=== PATIENT | female | born 1955 | race Caucasian/White ===

== ENCOUNTER → 2018-01-11 08:50 | Outpatient (CLI) | payer OTHER, SELFPAY ==
[2018-01-11 10:00] LABS: BUN Creatinine Ratio 26.3 (6-22); Cholesterol 233 mg/dL (140-199); Estimated Glomerular Filt Rate > 60.0 mL/min (>60); Glucose 95 mg/dL (80-110); HDL Cholesterol 70 mg/dL (40-60); HEMOLYSIS < 15 (0-50); LDL Cholesterol Calculated 128 mg/dL (<100); Potassium 4.3 mmol/L (3.4-5.1); Sodium 138 mmol/L (137-145); Triglycerides 176 mg/dL (35-150)
[2018-01-11 10:23] LABS: TSH w/ Reflex to FT4 1.48 uIU/mL (0.47-4.68)
== END ==
PROVIDERS: PCP Internal Medicine; Visit Provider Internal Medicine
DX: E03.9 Hypothyroidism, unspecified (principal); Z13.220 Encounter for screening for lipoid disorders
CPT/HCPCS: 36415; 80048; 80061; 84443

== ENCOUNTER 2018-04-14 11:43 | Outpatient (RCR) | payer OTHER, SELFPAY ==
--- NOTE | 2018-04-14 12:00 | PT.OPPOC ---
Current Diagnoses Benign paroxysmal vertigo, unspecified ear (04/14/18) Provider Visit Care Team Role Provider Type Zully Streeter MD Attending Provider Physician Family Provider Primary Care Provider Specialty: Internal Medicine Address: [address] [place] [address], [id number] Email: Plan Of Care PT-OP-T Assessment and Plan Start: 04/15/18 08:32 Freq: Status: Active Protocol: Document 04/14/18 12:00 DCW (Rec: 04/15/18 08:59 DCW [id number]) Physical Therapy Assessment Rehab Potential Rehabilitation Potential Good Evaluation Complexity Number of Personal Factors/Comorbidities 1-2 Number of Body Systems Impaired 1-2 Clinical Presentation at Evaluation Unstable Impairments Impairments Vestibular Goals Two Impairment DHI Short Term Goal (STG) Pt to score at most 10% on DHI STG Duration 05/12/18 One Impairment Vertigenous symptoms Short Term Goal (STG) Pt to report no symptoms of dizziness/vertigo over the course of two weeks STG Duration 05/12/18 Assessment Summary Assessment Pt presents with an entirely negative vestibular examination. Going by her subjective history and symptoms, pt may be suffering from BPPV, which would explain the short duration of symptoms, the waxing and waning nature of her episodes, and her discription of her symptoms. However, BPPV does not typically occur once a week, and pt cannot remember if there is any associated head movement or position changes when her symptoms occur. Another possibility would be migraine variant dizziness, judging by her history of migraine, however it would be highly unusual of vertigo caused by migraine only lasting for one minute or less. Cervicogenic dizziness could also be a possibility, with her history of cervical fracture, but again, the occurance of her symptoms do not fit well. It was recommended to the patient to keep track of her symptoms, and return in the next two weeks for a follow up and for more testing to be performed. Physical Therapy Plan Frequency and Duration Frequency of Treatment 1x/Week Duration of Treatment 2 months Plan of Care Start Date 04/14/18 Plan of Care End Date 06/14/18 Therapeutic Interventions Therapeutic Interventions Canalithic Repositioning Manual Therapy Neuromuscular Re-education Patient/Caregiver Education Therapeutic Exercises Vestibular Rehabilitation Next Visit Focus/Plan Next Note Type Treatment Note Next Visit Plan Further vestibular testing Plan of Care Dates Plan of Care Start Date 04/14/18 Plan of Care End Date 06/14/18 Please Sign and Return: I have reviewed this Plan of Care and certify that the skilled therapy services above are required to meet the patient?s needs. Physician Signature Date Printed Name and Credentials Clinical Instructor Signature Printed Name and Credentials
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
== END 2018-08-18 10:36 ==
LOC: PHYS 11:43
PROVIDERS: Family Provider Internal Medicine; PCP Internal Medicine; Visit Provider Internal Medicine
DX: H81.10 Benign paroxysmal vertigo, unspecified ear (principal)
CPT/HCPCS: 97161

== ENCOUNTER → 2018-06-28 09:47 | Outpatient (CLI) | payer OTHER, SELFPAY ==
--- NOTE | 2018-06-28 | DI.MG.S_ITS ---
BILATERAL DIGITAL SCREENING MAMMOGRAM 3D/2D WITH CAD: 06/28/2018 CLINICAL: Routine screening. Comparison is made to exams dated: 06/01/2017 mammogram, 05/28/2016 mammogram, and 05/22/2016 mammogram - [facility]. There are scattered fibroglandular elements in both breasts. Current study was also evaluated with a Computer Aided Detection (CAD) system. There are stable diffuse punctate calcifications in both breasts. No significant masses, calcifications, or other findings are seen in either breast. There has been no significant interval change. IMPRESSION: There is no mammographic evidence of malignancy. A 1 year screening mammogram is recommended. This exam was interpreted at Station ID: [id number]. NOTE: For mammograms, a report in lay terms will be sent to the patient. Approximately 15% of breast malignancies will not be visualized mammographically. In the management of a palpable breast mass, a negative mammogram must not discourage biopsy of a clinically suspicious lesion. Electronically Signed By: Justen Leija M.D. ecl/:06/29/2018 07:33:14 letter sent: Normal Exam ACR BI-RADS Category 2: Benign Finding(s) 3342F
== END ==
PROVIDERS: PCP Internal Medicine; Visit Provider Internal Medicine
DX: Z12.31 Encounter for screening mammogram for malignant neoplasm of breast (principal)
CPT/HCPCS: 77063; 77067

== ENCOUNTER → 2018-11-11 08:02 | Outpatient (CLI) | payer MEDICARE, OTHER, SELFPAY ==
--- NOTE | 2018-11-11 | DI.US.S_ITS ---
PROCEDURE: US ABD AORTA ANEURYSM SCREEN INDICATIONS: SCREENING Encounter for screening for osteoporosis TECHNIQUE: Real time scanning was performed of the aorta and iliac arteries, with image documentation. COMPARISON: None. FINDINGS: Aorta: Proximal aortic diameter measures 2.4 cm. Mid-aorta measures 2.0 cm. Distal aortic diameter is 1.7 cm. Iliac arteries: Right common iliac artery measures 1.1 cm. Left common iliac artery measures 1.0 cm. IMPRESSION: No evidence of aortic aneurysm identified. Dictated by: Flako Jack M.D. on 11/11/2018 at 9:17 Approved by: Flako Jack M.D. on 11/11/2018 at 9:18
[2018-11-11 09:06] LABS: BUN Creatinine Ratio 26.3 (6-22); Blood Urea Nitrogen 21 mg/dL (7-17); Calcium 9.2 mg/dL (8.4-10.2); Carbon Dioxide 25 mmol/L (22-32); Chloride 105 mmol/L (98-107); Cholesterol 218 mg/dL (140-199); Estimated Glomerular Filt Rate > 60.0 mL/min (>60); Glucose 96 mg/dL (80-110); HDL Cholesterol 55 mg/dL (40-60); HEMOLYSIS < 15 (0-50); LDL Cholesterol Calculated 134 mg/dL (<100); Potassium 4.1 mmol/L (3.4-5.1); Sodium 140 mmol/L (137-145); Triglycerides 146 mg/dL (35-150)
[2018-11-11 10:45] LABS: TSH w/ Reflex to FT4 2.14 uIU/mL (0.47-4.68)
[2018-11-11 11:17] LABS: Hep C Virus Ab w/Reflex Quant NEGATIVE s/c (NEGATIVE)
== END ==
PROVIDERS: PCP Internal Medicine; Visit Provider Internal Medicine
DX: Z13.820 Encounter for screening for osteoporosis (principal); Z13.6 Encounter for screening for cardiovascular disorders; Z13.1 Encounter for screening for diabetes mellitus; Z13.818 Encounter for screening for other digestive system disorders; E78.5 Hyperlipidemia, unspecified; E03.9 Hypothyroidism, unspecified; Z78.0 Asymptomatic menopausal state; Z90.722 Acquired absence of ovaries, bilateral; Z87.891 Personal history of nicotine dependence
CPT/HCPCS: 36415; 76706; 77080; 80048; 80061; 84443; 86803

== ENCOUNTER → 2019-04-19 09:11 | Outpatient (CLI) | payer MEDICARE, OTHER, SELFPAY ==
--- NOTE | 2019-04-19 | DI.CT.S_ITS ---
PROCEDURE: CT SINUS SCREEN WO CON INDICATIONS: Acute recurrent pansinusitis TECHNIQUE: Noncontrast 3.0 mm axial images acquired from the frontal sinuses to the mid-sella, with coronal and sagittal reformats. For radiation dose reduction, the following was used: automated exposure control, adjustment of mA and/or kV according to patient size. COMPARISON: None. FINDINGS: Image quality: Excellent. Moderate-sized mucous retention cyst versus polyp noted in the left maxillary and right sphenoid sinuses. Small mucous retention cyst noted in the right maxillary sinus. The estimated units are patent. No air-fluid levels. Nasal septum is midline. No monique bullosa or paradoxical turbinates. No osseous thickening, osseous remodeling or osseous erosive changes. IMPRESSION: 1. Moderate-sized right sphenoid sinus and left maxillary sinus mucous retention cyst versus polyps. 2. No air-fluid levels. Dictated by: Shelby Hunt MD, PhD on 04/19/2019 at 10:15 Approved by: Shelby Hunt MD, PhD on 04/19/2019 at 10:17
== END ==
PROVIDERS: PCP Internal Medicine; Visit Provider Internal Medicine
DX: J01.41 Acute recurrent pansinusitis (principal)
CPT/HCPCS: 70486

== ENCOUNTER → 2019-05-24 19:21 | Outpatient (ROUT) | payer MEDICARE, OTHER, SELFPAY ==
[2019-05-24 19:38] LABS: Add Manual Diff / Slide Review NO; Basophils Absolute Auto 100 /uL (0-100); Basophils Percent Auto 1.4 % (0-2); Eosinophils Absolute Auto 100 /uL (0-450); Eosinophils Percent Auto 1.2 % (2-4); Hematocrit 42.4 % (36-46); Hemoglobin 14.3 g/dL (12.0-16.0); Lymphocytes Absolute Auto 2800 /uL (1100-4500); Lymphocytes Percent Auto 35.4 % (25-40); Mean Corpuscular HGB Conc 33.8 % (30-36); Mean Corpuscular Hemoglobin 29.8 PG (26-34); Mean Corpuscular Volume 88.2 fL (80-100); Monocytes Absolute Auto 500 /uL (0-900); Monocytes Percent Auto 6.7 % (3-14); Neutrophils Absolute Auto 4400 /uL (1500-7000); Neutrophils Percent Auto 55.3 % (50-75); Platelet Count 189 X10^3/uL (150-400); Red Blood Cell Count 4.81 X10^6/uL (4.0-5.2); Red Cell Distribution Width 14.2 % (11.6-14.8)
[2019-05-24 19:49] LABS: Alanine Aminotransferase 21 IU/L (9-52); Aspartate Aminotransferase 29 IU/L (14-36); Blood Urea Nitrogen 20 mg/dL (7-17); C-Reactive Protein Quant 0.9 mg/dL (<1.0); Calcium 9.6 mg/dL (8.4-10.2); Carbon Dioxide 23 mmol/L (22-32); Chloride 106 mmol/L (98-107); Creatine Kinase 90 U/L (30-135); Estimated Glomerular Filt Rate > 60.0 mL/min (>60); Glucose 98 mg/dL (80-110); HEMOLYSIS 28 (0-50); Potassium 4.6 mmol/L (3.4-5.1); Sodium 140 mmol/L (137-145)
[2019-05-24 20:13] LABS: Erythrocyte Sedimentation Rate 5 MM/HR (0-20)
[2019-05-24 20:18] LABS: TSH w/ Reflex to FT4 1.89 uIU/mL (0.47-4.68)
== END ==
PROVIDERS: PCP Internal Medicine; Visit Provider Internal Medicine
DX: M79.10 Myalgia, unspecified site (principal); E03.9 Hypothyroidism, unspecified
CPT/HCPCS: 80048; 82550; 84443; 84450; 84460; 85025; 85651; 86140

== ENCOUNTER → 2019-06-27 12:24 | Outpatient (CLI) | payer MEDICARE, OTHER, SELFPAY ==
[2019-06-27 13:23] LABS: Erythrocyte Sedimentation Rate 3 MM/HR (0-20)
== END ==
PROVIDERS: PCP Internal Medicine; Visit Provider Family Medicine
DX: G43.909 Migraine, unspecified, not intractable, without status migrainosus (principal)
CPT/HCPCS: 36415; 85651

== ENCOUNTER → 2019-07-05 17:41 | Outpatient (CLI) | payer MEDICARE, OTHER, SELFPAY ==
--- NOTE | 2019-07-05 17:45 | DI.MRI.S_ITS ---
PROCEDURE: MR HEAD/BRAIN WO CON INDICATIONS: migraine headaches + new atypical facial pain TECHNIQUE: Non-contrast axial T1 spin echo, axial T2 fast spin echo, sagittal and axial FLAIR, coronal T2 fast spin echo, axial gradient echo, axial diffusion and ADC through the brain. COMPARISON: None. FINDINGS: Image quality: Excellent. CSF spaces: Ventricles appear symmetric in size and shape. Basal cisterns are patent. No extra-axial fluid collections. Brain: No intracranial bleeds or mass effects. There is no cerebral volume loss for age. There are minimal periventricular and deep white matter chronic small vessel ischemic changes. Brainstem appears normal. Diffusion-weighted images show no acute ischemic insults. No chronic ischemic insults. Normal intravascular flow voids are present. Skull and face: Calvarial bone marrow is normal in signal. Orbits are normal. Sinuses: Moderate-sized left maxillary sinus mucous retention cyst versus polyp. mastoids are clear. IMPRESSION: 1. No acute intracranial disease process. 2. No abnormal intracranial mass 3. Mild, diffuse cerebral volume loss. 4. Minimal periventricular and subcortical white matter chronic microvascular ischemic changes. Dictated by: Shelby Hunt MD, PhD on 07/06/2019 at 9:12 Approved by: Shelby Hunt MD, PhD on 07/06/2019 at 10:48
== END ==
PROVIDERS: Family Provider Internal Medicine; PCP Internal Medicine; Visit Provider Family Medicine
DX: G43.909 Migraine, unspecified, not intractable, without status migrainosus (principal); G50.1 Atypical facial pain
CPT/HCPCS: 70551

== ENCOUNTER → 2019-08-12 08:56 | Outpatient (CLI) | payer MEDICARE, OTHER, SELFPAY ==
--- NOTE | 2019-08-12 | DI.MG.S_ITS ---
BILATERAL DIGITAL SCREENING MAMMOGRAM 3D/2D WITH CAD: 08/12/2019 CLINICAL: Routine screening. Comparison is made to exams dated: 06/28/2018 mammogram, 06/01/2017 mammogram, and 05/22/2016 mammogram - [facility]. The tissue of both breasts is heterogeneously dense. This may lower the sensitivity of mammography. Current study was also evaluated with a Computer Aided Detection (CAD) system. There are benign calcifications in both breasts. No significant masses, calcifications, or other findings are seen in either breast. There has been no significant interval change. IMPRESSION: There is no mammographic evidence of malignancy. A 1 year screening mammogram is recommended. This exam was interpreted at Station ID: [id number]. NOTE: For mammograms, a report in lay terms will be sent to the patient. Approximately 15% of breast malignancies will not be visualized mammographically. In the management of a palpable breast mass, a negative mammogram must not discourage biopsy of a clinically suspicious lesion. Electronically Signed By: John gardner/abi:08/14/2019 10:42:11 letter sent: Normal Exam ACR BI-RADS Category 2: Benign Finding(s) 3342F
== END ==
PROVIDERS: PCP Internal Medicine; Visit Provider Internal Medicine
DX: Z12.31 Encounter for screening mammogram for malignant neoplasm of breast (principal)
CPT/HCPCS: 77063; 77067

== ENCOUNTER → 2020-02-13 17:43 | Outpatient (ROUT) | payer MEDICARE, OTHER, SELFPAY ==
[2020-02-16 19:57] LABS: COVID19 Sendout Not Detected (Not Detected)
== END ==
PROVIDERS: PCP Internal Medicine; Visit Provider Physician Assistant
DX: R05 Cough (principal); R06.02 Shortness of breath
CPT/HCPCS: 87635

== ENCOUNTER → 2020-07-15 09:41 | Outpatient (CLI) | payer MEDICARE, OTHER, SELFPAY ==
[2020-07-15 11:33] LABS: Alanine Aminotransferase 15 IU/L (<35); Albumin 3.9 g/dL (3.5-5.0); Albumin Globulin Ratio 1.4 (1.0-2.8); Alkaline Phosphatase 42 U/L (38-126); Aspartate Aminotransferase 19 IU/L (14-36); Bilirubin Total 0.6 mg/dL (0.2-1.3); Blood Urea Nitrogen 18 mg/dL (7-17); Calcium 9.3 mg/dL (8.4-10.2); Carbon Dioxide 30 mmol/L (22-32); Chloride 97 mmol/L (98-107); Cholesterol 212 mg/dL (140-199); Estimated Glomerular Filt Rate > 60.0 mL/min (>60); Globulin 2.7 g/dL (1.7-4.1); Glucose 84 mg/dL (80-110); HDL Cholesterol 69 mg/dL (40-60); HEMOLYSIS < 15 (0-50); LDL Cholesterol Calculated 111 mg/dL (<100); Potassium 4.4 mmol/L (3.4-5.1); Sodium 134 mmol/L (137-145); Total Protein 6.6 g/dL (6.3-8.2); Triglycerides 160 mg/dL (35-150)
[2020-07-15 12:02] LABS: TSH w/ Reflex to FT4 1.69 uIU/mL (0.47-4.68)
== END ==
PROVIDERS: PCP Internal Medicine; Referring Provider Internal Medicine; Visit Provider Internal Medicine
DX: E03.9 Hypothyroidism, unspecified (principal)
CPT/HCPCS: 36415; 80053; 80061; 84443

== ENCOUNTER → 2020-07-31 13:53 | Outpatient (CLI) | payer MEDICARE, OTHER, SELFPAY ==
[2020-07-31 15:17] LABS: COVID19 -Nasal RAPID Negative (Negative)
== END ==
PROVIDERS: PCP Internal Medicine; Visit Provider Physician Assistant
DX: Z11.59 Encounter for screening for other viral diseases (principal)
CPT/HCPCS: 87635

== ENCOUNTER → 2020-08-13 12:08 | Outpatient (CLI) | payer MEDICARE, OTHER, SELFPAY ==
--- NOTE | 2020-08-13 | DI.MG.S_ITS ---
BILATERAL DIGITAL SCREENING MAMMOGRAM 3D/2D WITH CAD: 08/13/2020 CLINICAL: Routine screening. Comparison is made to exams dated: 08/12/2019 mammogram, 06/28/2018 mammogram, and 06/01/2017 mammogram - [facility]. The tissue of both breasts is heterogeneously dense. This may lower the sensitivity of mammography. Current study was also evaluated with a Computer Aided Detection (CAD) system. There are benign calcifications in both breasts. There is a mole marker on the right breast. No significant masses, calcifications, or other findings are seen in either breast. There has been no significant interval change. IMPRESSION: BENIGN There is no mammographic evidence of malignancy. A 1 year screening mammogram is recommended. This exam was interpreted at Station ID: [id number]. NOTE: For mammograms, a report in lay terms will be sent to the patient. Approximately 15% of breast malignancies will not be visualized mammographically. In the management of a palpable breast mass, a negative mammogram must not discourage biopsy of a clinically suspicious lesion. Electronically Signed By: Shyam Rudd acr/abi:08/13/2020 13:05:03 letter sent: Normal Exam ACR BI-RADS Category 2: Benign Finding(s) 3342F
== END ==
PROVIDERS: PCP Internal Medicine; Referring Provider Internal Medicine; Visit Provider Internal Medicine
DX: Z12.31 Encounter for screening mammogram for malignant neoplasm of breast (principal)
CPT/HCPCS: 77063; 77067

== ENCOUNTER → 2020-09-03 15:42 | Outpatient (CLI) | payer MEDICARE, OTHER, SELFPAY ==
--- NOTE | 2020-09-03 15:46 | DI.MRI.S_ITS ---
PROCEDURE: MR LUMBAR SPINE WO CON INDICATIONS: Radiculopathy, lumbar region TECHNIQUE: Noncontrast sagittal T1 spin echo and T2 fast echo, sagittal STIR, axial T1 and T2 fast spin echo through the lumbar spine. Axial and oblique coronal T1 spin echo and STIR through the sacrum. In cases with scoliosis, additional coronal T2 fast spin echo may be performed. Additional oblique coronal images were obtained of the sacrum with T1 weighted and STIR images. COMPARISON: [facility], MR, L-SPINE WITHOUT CONTRAST, 12/23/2015, 18:44. [facility], CR, XR LUMBAR SPINE 2 OR 3 VIEWS, 06/09/2019, 8:50. [facility], MR, MR LUMBAR SPINE WITHOUT CONTRAST, 09/09/2017, 9:35. FINDINGS: Image quality: Excellent. Alignment and Curvature: There is normal bony alignment. Bone Marrow: Marrow is of normal overall signal. No acute vertebral body compression fractures. No sacral fractures. Spinal Cord: Conus medullaris terminates at the L1 level. Visualized cord demonstrates normal signal and size. Paraspinous Soft Tissues: No paravertebral masses. T11-T12: Moderate loss of disc height is seen. Reactive marrow endplate changes are seen, which are hyperintense on T1-weighted and T2-weighted imaging and most consistent with fatty metaplasia (Modic type II changes). Mild generalized disc bulge is seen. Bridging endplate osteophytes are seen. No significant neural foraminal or central canal narrowing can be seen. T12-L1: Oyri-ba-phohtprm loss of disc height and disc signal can be seen. Mild generalized disc bulge is seen. There is mild right-sided and no left-sided neural foraminal narrowing seen. The central canal is widely patent. L1-L2: The disc height is well-preserved. Loss of disc signal is seen at this level. No significant neural foraminal or central canal narrowing can be seen. L2-L3: The disc height is well-preserved. Loss of disc signal is seen at this level. No significant neural foraminal or central canal narrowing can be seen. L3-L4: The disc height is well-preserved. Loss of disc signal is seen at this level. No significant neural foraminal or central canal narrowing can be seen. L4-L5: The disc height is well-preserved. Loss of disc signal is seen at this level. Mild generalized disc bulge is seen. Mild to moderate facet hypertrophy is seen. Fluid is seen within the facet joints themselves. No significant neural foraminal or central canal narrowing can be seen. L5-S1: The disc height is well-preserved. Loss of disc signal is seen at this level. At least moderate facet hypertrophy can be seen. No significant neural foraminal or central canal narrowing can be seen. Sacrum: Sacral neural foramina appear normal throughout. Superior to the piriformis muscles, the pre-plexal structures appear normal, including the lumbosacral trunk and S1 root. Just anterior to the piriformis muscles, the sacral plexus proper demonstrates normal morphology (lumbosacral trunk, S1 to S3 nerve roots). Inferior to the piriformis muscles, the sciatic nerves appear normal. IMPRESSION: Degenerative changes are seen, which are similar to the prior. No significant sacral abnormality is detected. Dictated by: Maverick Lennon M.D. on 09/03/2020 at 17:17 Approved by: Maverick Lennon M.D. on 09/03/2020 at 17:21
== END ==
PROVIDERS: PCP Internal Medicine; Referring Provider Physical Medicine & Rehabilitation; Visit Provider Physical Medicine & Rehabilitation
DX: M47.26 Other spondylosis with radiculopathy, lumbar region (principal)
CPT/HCPCS: 72148

== ENCOUNTER → 2020-09-04 12:09 | Outpatient (CLI) | payer MEDICARE, OTHER, SELFPAY ==
--- NOTE | 2020-09-04 | DI.RAD.S_ITS ---
PROCEDURE: XR CERVICAL SPINE 4V OR 5V INDICATIONS: NECK PAIN TECHNIQUE: 6 views of the cervical spine were acquired. COMPARISON: None. FINDINGS: Bones: No fractures or dislocations to the T1 level. No suspicious bony lesions. Loss of lordosis which could be related to muscle spasm, rigidity or simply positional. Grade 1 spondylolisthesis C5-C6 and C6-C7. Multilevel disc degeneration, most notably and moderate at the C4-C5 and C5-C6 levels. Mild multilevel mid and lower cervical spine facet joint arthropathy and uncovertebral hypertrophy. Oblique views demonstrate mild bilateral multilevel mid and lower cervical spine neural foraminal narrowing. Soft tissues: Prevertebral soft tissues are normal in thickness. IMPRESSION: Loss of lordosis and multilevel spondylosis. Dictated by: Roscoe Ball [facility] Interpreted: Shelby Hunt MD on 09/04/2020 at 12:56 Approved by: Shelby Hunt MD, PhD on 09/04/2020 at 14:51
== END ==
PROVIDERS: PCP Internal Medicine; Referring Provider Internal Medicine; Visit Provider Internal Medicine
DX: M54.2 Cervicalgia (principal); M47.812 Spondylosis without myelopathy or radiculopathy, cervical region
CPT/HCPCS: 72050

== ENCOUNTER → 2020-11-05 14:32 | Outpatient (CLI) | payer MEDICARE, OTHER, SELFPAY ==
[2020-11-05 15:43] LABS: Add Manual Diff / Slide Review NO; Basophils Absolute Auto 0 /uL (0-100); Basophils Percent Auto 0.9 % (0-2); Eosinophils Absolute Auto 0 /uL (0-450); Eosinophils Percent Auto 0.7 % (2-4); Hematocrit 40.1 % (36-46); Hemoglobin 13.9 g/dL (12.0-16.0); Lymphocytes Absolute Auto 2400 /uL (1100-4500); Lymphocytes Percent Auto 44.4 % (25-40); Mean Corpuscular HGB Conc 34.7 % (30-36); Mean Corpuscular Hemoglobin 31.7 PG (26-34); Mean Corpuscular Volume 91.5 fL (80-100); Monocytes Absolute Auto 500 /uL (0-900); Monocytes Percent Auto 9.8 % (3-14); Neutrophils Absolute Auto 2400 /uL (1500-7000); Neutrophils Percent Auto 44.2 % (50-75); Platelet Count 139 X10^3/uL (150-400); Red Blood Cell Count 4.38 X10^6/uL (4.0-5.2); White Blood Cell Count 5.3 X10^3/uL (4.5-11.0)
[2020-11-05 16:01] LABS: Alanine Aminotransferase 14 IU/L (<35); Albumin Globulin Ratio 1.6 (1.0-2.8); Alkaline Phosphatase 45 U/L (38-126); Aspartate Aminotransferase 22 IU/L (14-36); BUN Creatinine Ratio 22.2 (6-22); Bilirubin Total 0.4 mg/dL (0.2-1.3); Blood Urea Nitrogen 18 mg/dL (7-17); Calcium 9.2 mg/dL (8.4-10.2); Carbon Dioxide 27 mmol/L (22-32); Chloride 97 mmol/L (98-107); Cholesterol 160 mg/dL (140-199); Estimated Glomerular Filt Rate > 60.0 mL/min (>60); Globulin 2.5 g/dL (1.7-4.1); Glucose 94 mg/dL (80-110); HDL Cholesterol 72 mg/dL (40-60); HEMOLYSIS < 15 (0-50); LDL Cholesterol Calculated 56 mg/dL (<100); Sodium 130 mmol/L (137-145); Total Protein 6.5 g/dL (6.3-8.2); Triglycerides 159 mg/dL (35-150)
[2020-11-05 16:30] LABS: TSH w/ Reflex to FT4 0.91 uIU/mL (0.47-4.68)
== END ==
PROVIDERS: PCP Internal Medicine; Referring Provider Internal Medicine; Visit Provider Internal Medicine
DX: E03.9 Hypothyroidism, unspecified (principal)
CPT/HCPCS: 36415; 80053; 80061; 84443; 85025

== ENCOUNTER → 2020-11-11 11:15 | Outpatient (CLI) | payer MEDICARE, OTHER, SELFPAY ==
--- NOTE | 2020-11-11 | DI.US.S_ITS ---
PROCEDURE: US PERIPH VENOUS LOW EXTREM LT INDICATIONS: LEFT LEG CELLULITIS TECHNIQUE: Real-time imaging, as well as color and pulse Doppler interrogation, were performed of the lower extremity deep veins from the inguinal ligament to the popliteal fossa. COMPARISON: None. FINDINGS: The common femoral, femoral and popliteal veins are normally compressible, and free of intraluminal thrombus. Color and pulse Doppler demonstrate normal phasic intraluminal flow. There is normal augmentation response to distal compression maneuver. Edema within the proximal calf and ankle. IMPRESSION: No deep venous thrombosis identified within the left lower extremity. Dictated by: Roscoe Ball [facility] Interpreted: Shelby Hunt MD on 11/11/2020 at 14:51 Approved by: Shelby Hunt MD, PhD on 11/11/2020 at 15:56
== END ==
PROVIDERS: PCP Internal Medicine; Referring Provider Internal Medicine; Visit Provider Internal Medicine
DX: L03.116 Cellulitis of left lower limb (principal)
CPT/HCPCS: 93971

== ENCOUNTER → 2020-12-27 12:47 | Outpatient (CLI) | payer MEDICARE, OTHER, SELFPAY ==
[2020-12-31 16:05] LABS: H. Pylori Antigen Stool Negative (Negative)
== END ==
PROVIDERS: PCP Internal Medicine; Referring Provider Internal Medicine Gastroenterology; Visit Provider Internal Medicine Gastroenterology
DX: A04.8 Other specified bacterial intestinal infections (principal)
CPT/HCPCS: 87338

== ENCOUNTER → 2021-08-14 11:09 | Outpatient (CLI) | payer MEDICARE, OTHER, SELFPAY ==
--- NOTE | 2021-08-14 11:12 | DI.MG.S_ITS ---
BILATERAL DIGITAL SCREENING MAMMOGRAM 3D/2D WITH CAD: 08/14/2021 CLINICAL: Routine screening. Comparison is made to exams dated: 08/13/2020 mammogram, 08/12/2019 mammogram, and 06/28/2018 mammogram - [facility]. The tissue of both breasts is heterogeneously dense. This may lower the sensitivity of mammography. Current study was also evaluated with a Computer Aided Detection (CAD) system. There are benign calcifications in both breasts. No significant masses, calcifications, or other findings are seen in either breast. There has been no significant interval change. IMPRESSION: BENIGN There is no mammographic evidence of malignancy. A 1 year screening mammogram is recommended. This exam was interpreted at Station ID: [id number]. NOTE: For mammograms, a report in lay terms will be sent to the patient. Approximately 15% of breast malignancies will not be visualized mammographically. In the management of a palpable breast mass, a negative mammogram must not discourage biopsy of a clinically suspicious lesion. Electronically Signed By: Joe parmar/abi:08/14/2021 12:17:08 letter sent: Normal Exam ACR BI-RADS Category 2: Benign Finding(s) [id number]
== END ==
PROVIDERS: PCP Internal Medicine; Referring Provider Internal Medicine; Visit Provider Internal Medicine
DX: Z12.31 Encounter for screening mammogram for malignant neoplasm of breast (principal)
CPT/HCPCS: 77063; 77067

== ENCOUNTER → 2021-08-26 15:21 | Outpatient (CLI) | payer MEDICARE, OTHER, SELFPAY ==
[2021-08-26 16:57] LABS: Estimated Glomerular Filt Rate > 60.0 mL/min (>60)
== END ==
PROVIDERS: PCP Internal Medicine; Referring Provider Internal Medicine; Visit Provider Internal Medicine
DX: R10.12 Left upper quadrant pain (principal)
CPT/HCPCS: 36415; 82565

== ENCOUNTER → 2021-08-28 12:16 | Outpatient (CLI) | payer MEDICARE, OTHER, SELFPAY ==
--- NOTE | 2021-08-28 12:20 | DI.CT.S_ITS ---
PROCEDURE: CT ABDOMEN PELVIS W CON INDICATIONS: Left upper quadrant pain TECHNIQUE: After the administration of oral and IV contrast, axial sections were acquired from the lung bases to the pubic symphysis. Coronal and sagittal reformats were performed. For radiation dose reduction, the following was used: automated exposure control, adjustment of mA and/or kV according to patient size. COMPARISON: None. FINDINGS: Image quality: Excellent. Lung bases: Clear lung bases. No hiatal hernia. Heart: No significant findings. ABDOMEN: Liver: No masses Gallbladder: Normal wall thickness. Biliary ducts: Nondilated. Pancreas: Normal. Spleen: Normal size. Adrenal Glands: No nodules. Kidneys and Ureters: Normal enhancement. No hydronephrosis or hydroureter. No calcifications. Stomach and Bowel: Moderate to severe sigmoid colon diverticulosis. The colon is decompressed and there is mild wall thickening in this long segment. No surrounding inflammation. Stomach, small bowel loops, and remainder of the colon are unremarkable. Absent appendix. Peritoneum: No abnormal intraperitoneal fluid. No free air. Ventral Wall: Tiny fat containing umbilical hernia. Abdominal Nodes: No retroperitoneal or mesenteric adenopathy by size criteria. Vessels: Aorta and inferior vena cava are normal in size. Moderate abdominal aortic atherosclerotic calcification. PELVIS: Pelvic Organs: The uterus is absent. Ovarian tissue is not identified. No suspicious adnexal masses. Bladder: Decompressed Pelvic Nodes: Minimally prominent bilateral inguinal lymph nodes. No bulky intrapelvic adenopathy. Miscellaneous: No inguinal hernias are seen. Bones: Unremarkable. IMPRESSION: 1. No acute process. 2. Changes of chronic sigmoid diverticulitis without acute disease. 3. Normal CT appearance of the gallbladder. Dictated by: Shantell Escobedo M.D. on 08/28/2021 at 13:52 Approved by: Shantell Escobedo M.D. on 08/28/2021 at 13:58
== END ==
PROVIDERS: PCP Internal Medicine; Referring Provider Internal Medicine; Visit Provider Internal Medicine
DX: R10.12 Left upper quadrant pain (principal); K57.30 Diverticulosis of large intestine without perforation or abscess without bleeding; I70.0 Atherosclerosis of aorta
CPT/HCPCS: 74177

== ENCOUNTER → 2022-04-16 10:27 | Outpatient (CLI) | payer MEDICARE, OTHER, SELFPAY ==
--- NOTE | 2022-04-16 10:29 | DI.MRI.S_ITS ---
PROCEDURE: MR LUMBAR SPINE WO CON INDICATIONS: LUMBAR SPONDYLOSIS/CERVICAL STENOSIS TECHNIQUE: Noncontrast sagittal T1 spin echo and T2 fast echo, sagittal STIR, and T2 fast spin echo through the lumbar spine. In cases with scoliosis, additional coronal T2 fast spin echo may be performed. [facility]AST, 09/09/2017, 9:35. [facility], MR, MR LUMBAR SPINE WO CON, 09/03/2020, 16:03. [facility], MR, MR CERVICAL SPINE WO CON, 04/16/2022, 10:38. [facility], CT, CT ABDOMEN PELVIS W CON, 08/28/2021, 13:23. [facility], MR, L-SPINE WITHOUT CONTRAST, 12/23/2015, 18:44. FINDINGS: Image quality: This examination is limited by involuntary motion artifact. Alignment and Curvature: There is normal bony alignment. Bone Marrow: Marrow is of normal overall signal. No acute vertebral body compression fractures. Spinal Cord: Conus medullaris terminates at the L1 level. Visualized cord demonstrates normal signal and size. Paraspinous Soft Tissues: No paravertebral masses. T11-T12: Moderate loss of disc height is seen. Loss of disc signal is seen. Bridging endplate osteophytes are seen. Reactive marrow endplate changes are seen, which are hyperintense on T1-weighted and T2-weighted imaging and most consistent with fatty metaplasia (Modic type II changes). Mild generalized disc bulge is seen. No significant neural foraminal or central canal narrowing can be seen. T12-L1: Moderate loss of disc height is seen. Loss of disc signal is seen. Mild to moderate disc bulge is seen, which is eccentric to the right. Bridging endplate osteophytes are seen. There is mild right-sided and minimal left-sided neural foraminal narrowing. No central canal narrowing is seen. Stable from the prior study. L1-L2: The disc height is well-preserved. Loss of disc signal is seen at this level. Mild generalized disc bulge is seen. No significant neural foraminal or central canal narrowing can be seen. Stable from the prior study. L2-L3: The disc height is well-preserved. Loss of disc signal is seen at this level. Mild generalized disc bulge is seen. Minimal to mild facet hypertrophy is seen. No significant neural foraminal or central canal narrowing can be seen. Stable from the prior study. L3-L4: The disc height is well-preserved. Loss of disc signal is seen at this level. Minimal disc bulge is seen. There is a superimposed central disc protrusion. Mild facet joint hypertrophy is seen. No significant neural foraminal or central canal narrowing can be seen. Stable from the prior study. L4-L5: The disc height is well-preserved. Loss of disc signal is seen at this level. Minimal disc bulge is seen. Moderate facet joint hypertrophy is seen. Fluid is seen within the facet joints themselves. No significant neural foraminal or central canal narrowing can be seen. No significant change from the prior. L5-S1: The disc height and disk signal are well-preserved. At least moderate facet hypertrophy is seen. No significant neural foraminal or central canal narrowing can be seen. Stable from the prior study. 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 IMPRESSION: Multiple levels of lumbar spine degenerative change are seen, which are not progressed compared to 2020. Dictated by: Maverick Lennon M.D. on 04/16/2022 at 10:58 Approved by: Maverick Lennon M.D. on 04/16/2022 at 11:03
--- NOTE | 2022-04-16 10:29 | DI.MRI.S_ITS ---
PROCEDURE: MR CERVICAL SPINE WO CON INDICATIONS: LUMBAR SPONDYLOSIS/CERVICAL STENOSIS TECHNIQUE: Noncontrast sagittal T1 spin echo and T2 fast spin echo, sagittal STIR, foraminal oblique sagittal T2 fast spin echo, and axial gradient echo or T2 fast spin echo through the cervical spine. COMPARISON: [facility], MR, MR LUMBAR SPINE WO CON, 04/16/2022, 10:38. [facility], CR, XR CERVICAL SPINE 4V OR 5V, 09/04/2020, 12:17. FINDINGS: Image quality: This examination is limited by involuntary motion artifact. Alignment and Curvature: Minimal anterolisthesis is seen at C5-C6 and C6-C7. Bone Marrow: Marrow demonstrates normal overall signal. Spinal Cord: Visualized spinal cord has normal size and signal. No cerebellar tonsillar herniation. Paraspinous Soft Tissues: No paravertebral masses. Prevertebral soft tissues are normal in thickness. The dens is projected posteriorly. There is mild soft tissue pannus seen adjacent to the dens. No gordon erosions of the dens are detected. C2-C3: A degree of congenital fusion can be seen at this level. No significant neural foraminal or central canal narrowing can be seen. C3-C4: The disc height is well-preserved. Loss of disc signal is seen at this level. A mild degree of generalized disc osteophyte complex is seen. At least moderate facet hypertrophy is seen. Moderate bilateral neural foraminal narrowing is seen. No significant central canal narrowing is seen. C4-C5: Mild to moderate loss of disc height is seen. Loss of disc signal is seen. A mild degree of generalized disc osteophyte complex is seen. There is moderate right-sided and at least moderate left-sided facet hypertrophy. Moderate to severe bilateral neural foraminal narrowing can be seen, left worse than right. No significant central canal narrowing is seen. C5-C6: Moderate loss of disc height is seen. Loss of disc signal is seen. A mild degree of generalized disc osteophyte complex is seen. At least moderate right-sided and mild left-sided facet hypertrophy can be seen. Moderate bilateral neural foraminal narrowing is seen. Mild central canal narrowing is seen. C6-C7: Ybgs-ik-bzwwrlen loss of disc height and disc signal can be seen. A mild degree of generalized disc osteophyte complex is seen. Mild facet joint hypertrophy is seen. There is at least moderate right-sided and moderate left-sided neural foraminal narrowing. Mild central canal narrowing is seen. C7-T1: The disc height is well-preserved. Loss of disc signal is seen at this level. A mild degree of generalized disc osteophyte complex is seen. There is moderate right-sided and mild left-sided neural foraminal narrowing. The central canal is widely patent. IMPRESSION: Multiple levels of cervical spine degenerative change are seen, which are overall worst inferiorly. The dens is mildly projected posteriorly, with soft tissue pannus seen posterior to the dens. 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 Dictated by: Maverick Lennon M.D. on 04/16/2022 at 10:52 Approved by: Maverick Lennon M.D. on 04/16/2022 at 10:57
== END ==
PROVIDERS: PCP Internal Medicine; Referring Provider Physical Medicine & Rehabilitation; Visit Provider Physical Medicine & Rehabilitation
DX: M48.02 Spinal stenosis, cervical region (principal); M47.812 Spondylosis without myelopathy or radiculopathy, cervical region; M47.816 Spondylosis without myelopathy or radiculopathy, lumbar region; M47.817 Spondylosis without myelopathy or radiculopathy, lumbosacral region
CPT/HCPCS: 72141; 72148

== ENCOUNTER → 2022-04-21 10:05 | Outpatient (CLI) | payer MEDICARE, OTHER, SELFPAY ==
[2022-04-21 10:55] LABS: COVID19 -Nasal RAPID Negative (Negative)
--- NOTE | 2022-04-23 18:58 | DI.NM.S_ITS ---
DATE OF SERVICE: PROCEDURE: Pharmacological perfusion study. INDICATION: Chest pain with underlying hyperlipidemia, obesity. RADIOPHARMACEUTICAL: 26.2 mCi technetium-99m Myoview IV was injected at stress, and 24.7 mCi technetium-99m Myoview IV was injected at rest. CARDIAC STRESS: The patient underwent IV Lexiscan perfusion study under the supervision of an attending staff as per standard protocol. Her baseline blood pressure was 124/78. Rhythm was sinus. During stress, there were no convincing ischemic changes. No significant ectopy seen. With Lexiscan injection, she had minimal dyspnea and mild chest discomfort with radiation to the back, which got improved in recovery. No reversal agent needed. RAW DATA: Significant breast shadow seen. The breast shadow involving and circling the whole heart. GATED STUDY: Resting LV ejection fraction is 70 percent and stress LV ejection fraction 81 percent without any obvious wall motion abnormalities. Resting end- diastolic volume 61 mL. TID ratio 0.97, which is within normal limits. Lung/heart ratio 0.20, which is within normal limits. MYOCARDIAL PERFUSION SCAN: Stress supine, resting supine, and stress prone images were compared to each other. After comparing all those three images, there appears to be predominantly fixed small- to moderate-sized, moderately decreased perfusion of distal anterior wall extending into the distal anterior septum. There is no obvious reversible ischemia. CONCLUSION: 1. No obvious reversible ischemia. 2. There is a fixed moderate-sized distal anterior wall and distal anterior septal defect without any reversible ischemia. On raw data, there is a large breast shadow involving and circling the whole heart. Anterior wall and the apex and the septum darnell normally. No regional wall motion abnormalities. Preserved left ventricular function. No transient ischemic dilatation. Lung/heart ratio within normal limits. Hence, most likely we are dealing with persistent tissue attenuation artifact due to breast shadow, unlikely a nontransmural myocardial infarction. In absence of reversible ischemia, and preserved left ventricular function, overall low-risk myocardial perfusion scan. No ischemic electrocardiographic changes. Correlate clinically. Lissette Villagran TIA/helen/ROXANNA doc#: [id number]/job#: [id number] dd: 04/23/2022 17:18:00 dt: 04/23/2022 18:45:00 DICTATING MD/COPIES TO: Demetri Collins MD COPIES MNE: ELIZABETH;
== END ==
PROVIDERS: PCP Internal Medicine; Referring Provider Internal Medicine; Visit Provider Internal Medicine
DX: R07.9 Chest pain, unspecified (principal); Z20.822 Contact with and (suspected) exposure to COVID-19; E78.5 Hyperlipidemia, unspecified; E66.9 Obesity, unspecified
CPT/HCPCS: 78452; 87635; 93017; A9502; J2785

== ENCOUNTER → 2022-08-19 12:23 | Outpatient (CLI) | payer MEDICARE, OTHER, SELFPAY ==
--- NOTE | 2022-08-19 12:25 | DI.MG.S_ITS ---
BILATERAL DIGITAL SCREENING MAMMOGRAM 3D/2D WITH CAD: 08/19/2022 CLINICAL: Routine screening. Comparison is made to exams dated: 08/14/2021 mammogram, 08/13/2020 mammogram, and 08/12/2019 mammogram - [facility]. Both breasts are heterogeneously dense, which may obscure small masses (category c / 51-75% glandular tissue). Current study was also evaluated with a Computer Aided Detection (CAD) system. There are benign calcifications in both breasts. No significant masses, calcifications, or other findings are seen in either breast. There has been no significant interval change. IMPRESSION: BENIGN There is no mammographic evidence of malignancy. A 1 year screening mammogram is recommended. Based on the Tyrer Cuzick model (a risk assessment model) the patient's lifetime risk is 3.9% and her 10 year risk is 2.2%. According to the ACR, ACS, and NCCN guidelines, an annual breast MRI exam along with mammogram is recommended if the patient's lifetime risk is 20% or greater. This exam was interpreted at Station ID: [id number]. NOTE: For mammograms, a report in lay terms will be sent to the patient. Approximately 15% of breast malignancies will not be visualized mammographically. In the management of a palpable breast mass, a negative mammogram must not discourage biopsy of a clinically suspicious lesion. Electronically Signed By: Earl Barrera M.D., jr/abi:08/19/2022 13:10:04 letter sent: Normal Exam ACR BI-RADS Category 2: Benign Finding(s) [id number]
== END ==
PROVIDERS: PCP Internal Medicine; Referring Provider Internal Medicine; Visit Provider Internal Medicine
DX: Z12.31 Encounter for screening mammogram for malignant neoplasm of breast (principal)
CPT/HCPCS: 77063; 77067

== ENCOUNTER → 2022-11-06 09:02 | Outpatient (CLI) | payer MEDICARE, OTHER, SELFPAY ==
--- NOTE | 2022-11-06 09:03 | DI.MRI.S_ITS ---
PROCEDURE: MR ANKLE LT WO CON INDICATIONS: Posterior tibial tendinitis, unspecified leg TECHNIQUE: Noncontrast sagittal T1 spin echo and T2 fast spin echo with fat saturation, axial proton density fast spin echo and T2 fast spin echo with fat saturation, coronal T1 spin echo and T2 fast spin echo with fat saturation through the ankle/hindfoot. COMPARISON: [facility] [place], CR, XR ANKLE 3 VIEWS WEIGHT BEARING LEFT, 10/21/2022, 8:58. [facility], MR, ANKLE WITHOUT CONTRAST, 06/08/2014, 19:09. FINDINGS: Image quality: Excellent. Bones and joints: No bone marrow contusions or fractures. No hindfoot coalitions. No osteochondral injuries of the talar dome. Mild sagging of the midfoot is suspicious for mild pes planus. Mild osseous edema is seen at the plantar aspect of the talar head and the lateral talar process, which nonspecific but may represent mild osseous contusion. Medial structures: The deep and superficial layers of the deltoid ligament appear intact. The spring ligament components are intact. There is complete tearing of the posterior tibialis tendon at the level of the talar dome with retraction of the proximal tendon stump measuring up to 4 cm. Surrounding soft tissue edema and fluid are seen. The flexor digitorum longus and flexor hallucis longus tendons appear to be intact. The posterior tibial neurovascular bundle appears normal within the tarsal tunnel, without extrinsic mass effect. Lateral structures: Mild thickening of the anterior talofibular ligament is most likely related to a remote prior sprain. The calcaneofibular ligament and posterior talofibular ligament are intact. The anterior and posterior tibiofibular ligaments appear intact. Mild peroneus brevis and longus tenosynovitis. There is mild partial effacement of the sinus tarsi fat and a ganglion cyst extending superiorly from the lateral sinus tarsi measuring approximately 17 x 10 x 7 mm. Anterior structures: The tibialis anterior, extensor hallucis longus, and extensor digitorum longus tendons appear intact. The dorsal talonavicular ligament appears intact. Posterior and plantar structures: Mild Achilles tendinosis. There is moderate thickening of the proximal plantar fascia without surrounding soft tissue edema, consistent with chronic fasciitis. A small nonedematous plantar calcaneal enthesophyte is present. 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 IMPRESSION: 1. Complete tearing of the posterior tibialis tendon at the level of the talar dome with retraction of the proximal tendon stump resulting in separation of tendon stumps by approximately 4 cm. 2. Mild osseous edema within the plantar aspect of the talus is nonspecific and may be reactive or secondary to mild osseous contusions. 3. Mild pes planus. 4. Remote prior low-grade sprain of the anterior talofibular ligament. 5. Mild peroneus brevis and longus tenosynovitis. 6. Mild Achilles Achilles tendinosis. 7. Moderate chronic proximal plantar fasciitis. Approved by: Joe Vo M.D. on 11/06/2022 at 11:38
== END ==
PROVIDERS: PCP Internal Medicine; Referring Provider Orthopaedic Surgery Foot and Ankle Surgery; Visit Provider Orthopaedic Surgery Foot and Ankle Surgery
DX: S96.812A Strain of other specified muscles and tendons at ankle and foot level, left foot, initial encounter (principal); S93.492A Sprain of other ligament of left ankle, initial encounter; M65.872 Other synovitis and tenosynovitis, left ankle and foot; M21.42 Flat foot [pes planus] (acquired), left foot; M76.829 Posterior tibial tendinitis, unspecified leg
CPT/HCPCS: 73721

== ENCOUNTER → 2023-02-03 16:23 | Outpatient (CLI) | payer MEDICARE, OTHER, SELFPAY ==
[2023-02-03 17:33] LABS: Add Manual Diff / Slide Review NO; Basophils Absolute Auto 100 /uL (0-100); Basophils Percent Auto 0.9 % (0-2); Eosinophils Absolute Auto 0 /uL (0-450); Eosinophils Percent Auto 0.5 % (2-4); Hematocrit 40.4 % (36-46); Lymphocytes Absolute Auto 2300 /uL (1100-4500); Lymphocytes Percent Auto 39.4 % (25-40); Mean Corpuscular HGB Conc 34.7 % (30-36); Mean Corpuscular Hemoglobin 31.1 PG (26-34); Mean Corpuscular Volume 89.5 fL (80-100); Monocytes Absolute Auto 500 /uL (0-900); Monocytes Percent Auto 8.9 % (3-14); Neutrophils Absolute Auto 2900 /uL (1500-7000); Neutrophils Percent Auto 50.3 % (50-75); Platelet Count 149 X10^3/uL (150-400); Red Blood Cell Count 4.51 X10^6/uL (4.0-5.2); Red Cell Distribution Width 13.9 % (11.6-14.8); White Blood Cell Count 5.9 X10^3/uL (4.5-11.0)
[2023-02-03 17:56] LABS: BUN Creatinine Ratio 18.5 (6-22); Blood Urea Nitrogen 15 mg/dL (7-17); Calcium 8.9 mg/dL (8.4-10.2); Carbon Dioxide 26 mmol/L (22-32); Chloride 99 mmol/L (98-107); Estimated Glomerular Filt Rate > 60 mL/min (>60); Glucose 100 mg/dL (80-110); HEMOLYSIS 15 (0-50); Potassium 3.9 mmol/L (3.4-5.1); Sodium 132 mmol/L (137-145)
== END ==
PROVIDERS: PCP Internal Medicine; Referring Provider Orthopaedic Surgery Foot and Ankle Surgery; Visit Provider Orthopaedic Surgery Foot and Ankle Surgery
DX: Z01.818 Encounter for other preprocedural examination (principal); Z01.812 Encounter for preprocedural laboratory examination
CPT/HCPCS: 36415; 80048; 85025; 93005

== ENCOUNTER → 2023-08-19 12:42 | Outpatient (CLI) | payer MEDICARE, OTHER, SELFPAY ==
--- NOTE | 2023-08-19 | DI.MG.S_ITS ---
BILATERAL DIGITAL SCREENING MAMMOGRAM 3D/2D WITH CAD: 08/19/2023 CLINICAL: Routine screening. Comparison is made to exams dated: 08/19/2022 mammogram, 08/14/2021 mammogram, and 08/13/2020 mammogram - . Both breasts are heterogeneously dense, which may obscure small masses (category c / 51-75% glandular tissue). Current study was also evaluated with a Computer Aided Detection (CAD) system. There are benign diffuse calcifications in both breasts. No significant masses, calcifications, or other findings are seen in either breast. There has been no significant interval change. IMPRESSION: BENIGN There is no mammographic evidence of malignancy. A 1 year screening mammogram is recommended. Based on the Tyrer Cuzick model (a risk assessment model) the patient's lifetime risk is 3.7% and her 10 year risk is 2.2%. According to the ACR, ACS, and NCCN guidelines, an annual breast MRI exam along with mammogram is recommended if the patient's lifetime risk is 20% or greater. This exam was interpreted at Station ID: [id number]. NOTE: For mammograms, a report in lay terms will be sent to the patient. Approximately 15% of breast malignancies will not be visualized mammographically. In the management of a palpable breast mass, a negative mammogram must not discourage biopsy of a clinically suspicious lesion. Electronically Signed By: Miguelito tapia/abi:08/19/2023 16:59:00 letter sent: Normal Exam ACR BI-RADS Category 2: Benign Finding(s) [id number]
== END ==
PROVIDERS: PCP Internal Medicine; Referring Provider Internal Medicine; Visit Provider Internal Medicine
DX: Z12.31 Encounter for screening mammogram for malignant neoplasm of breast (principal)
CPT/HCPCS: 77063; 77067

== ENCOUNTER → 2024-01-07 16:46 | Outpatient (CLI) | payer MEDICARE, OTHER, SELFPAY ==
--- NOTE | 2024-01-07 | DI.MRI.S_ITS ---
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 In cases with scoliosis, additional coronal T2 fast spin echo may be performed. COMPARISON: [facility] [place], CR, XR LUMBAR SPINE 2 OR 3 VIEWS, 07/19/2023, 8:43. [facility], , MR LUMBAR SPINE WO CON, 04/16/2022, 10:38. FINDINGS: Image quality: Excellent. Alignment and Curvature: Mild leftward curvature with apex at L2. Bone Marrow: Marrow is of normal overall signal. Moderate reactive endplate changes are present at T12-L1. No acute vertebral body compression fractures. Spinal Cord: Conus medullaris terminates at the L2 level. Visualized cord demonstrates normal signal and size. Tarlov cyst is present S2. Paraspinous Soft Tissues: No paravertebral masses. Discs: Multilevel [id number] disc desiccation is present most severe at T12-L1. T12-L1: Disc bulge with small superimposed right posterior paracentral protrusion. No spinal stenosis. Mild right and minimal left foraminal narrowing. No interval change. L1-L2: Minimal disc bulge without spinal stenosis or foraminal narrowing. Facet and ligamentum flavum hypertrophy as well as epidural lipomatosis is present. No interval change. L2-L3: Minimal disc bulge without spinal stenosis or foraminal narrowing. Facet and ligamentum flavum hypertrophy as well as epidural lipomatosis is present. No interval change. L3-L4: Minimal disc bulge with superimposed protrusion. No spinal stenosis or foraminal narrowing. Facet and ligamentum flavum hypertrophy as well as epidural lipomatosis are present. No interval change. L4-L5: Mild disc bulge with minimal canal narrowing. No foraminal narrowing. Facet and ligamentum flavum hypertrophy as well as minimal epidural lipomatosis. No interval change. L5-S1: Mild disc bulge without spinal stenosis. No foraminal narrowing. No interval change. IMPRESSION: Degenerative changes stable compared to prior exam. Minimal canal narrowing is present L4-5 secondary to facet/ligamentum flavum arthropathy as well as epidural lipomatosis. Dictated by: Genoveva Hanson M.D. on 01/10/2024 at 14:53 Approved by: Genoveva Hanson M.D. on 01/10/2024 at 14:57
== END ==
PROVIDERS: PCP Internal Medicine; Referring Provider Physical Medicine & Rehabilitation; Visit Provider Physical Medicine & Rehabilitation
DX: M47.816 Spondylosis without myelopathy or radiculopathy, lumbar region (principal); M51.36 Other intervertebral disc degeneration, lumbar region; M51.37 Other intervertebral disc degeneration, lumbosacral region
CPT/HCPCS: 72148

== ENCOUNTER → 2024-10-10 15:05 | Outpatient (CLI) | payer MEDICARE, OTHER, SELFPAY ==
--- NOTE | 2024-10-10 | DI.MG.S_ITS ---
BILATERAL DIGITAL SCREENING MAMMOGRAM 3D/2D WITH CAD: 10/10/2024 CLINICAL: Routine screening. Comparison is made to exams dated: 08/19/2023 mammogram, 08/14/2021 mammogram, 08/19/2022 mammogram, 08/13/2020 mammogram, 08/12/2019 mammogram, and 06/28/2018 mammogram - [facility]. The breasts are heterogeneously dense, which may obscure small masses (category c / 51-75% glandular tissue). Current study was also evaluated with a Computer Aided Detection (CAD) system. There are benign diffuse calcifications in both breasts. No significant masses, calcifications, or other findings are seen in either breast. There has been no significant interval change. IMPRESSION: BENIGN There is no mammographic evidence of malignancy. A 1 year screening mammogram is recommended. Based on the Tyrer Cuzick model (a risk assessment model) the patient's lifetime risk is 3.3% and her 10 year risk is 2.3%. According to the ACR, ACS, and NCCN guidelines, an annual breast MRI exam along with mammogram is recommended if the patient's lifetime risk is 20% or greater. This exam was interpreted at Station ID: [id number]. NOTE: For mammograms, a report in lay terms will be sent to the patient. Approximately 15% of breast malignancies will not be visualized mammographically. In the management of a palpable breast mass, a negative mammogram must not discourage biopsy of a clinically suspicious lesion. Electronically Signed By: Kezia Claire M.D., Ph.D. eb/penvu:10/11/2024 22:55:49 letter sent: Normal Exam ACR BI-RADS Category 2: Benign
== END ==
PROVIDERS: PCP Internal Medicine; Referring Provider Internal Medicine; Visit Provider Internal Medicine
DX: Z12.31 Encounter for screening mammogram for malignant neoplasm of breast (principal); Z80.3 Family history of malignant neoplasm of breast; R92.333 Mammographic heterogeneous density, bilateral breasts
CPT/HCPCS: 77063; 77067

== ENCOUNTER → 2025-08-02 14:44 | Outpatient (CLI) | payer MEDICARE, OTHER, SELFPAY ==
[2025-08-02 15:21] LABS: Add Manual Diff / Slide Review NO; Hematocrit 38.3 % (36-46); Hemoglobin 13.1 g/dL (12.0-16.0); Lymphocytes Absolute Auto 1400 /uL (1100-4500); Mean Corpuscular HGB Conc 34.1 % (30-36); Mean Corpuscular Hemoglobin 30.0 PG (26-34); Mean Corpuscular Volume 88.1 fL (80-100); Platelet Count 190 X10^3/uL (150-400)
[2025-08-02 15:48] LABS: Alanine Aminotransferase 20 IU/L (<35); Albumin 3.8 g/dL (3.5-5.0); Albumin Globulin Ratio 1.3 (1.0-2.8); Alkaline Phosphatase 56 U/L (38-126); Blood Urea Nitrogen 12 mg/dL (7-17); Calcium 8.3 mg/dL (8.4-10.2); Carbon Dioxide 24 mmol/L (22-32); Chloride 99 mmol/L (98-107); Estimated Glomerular Filt Rate > 60 mL/min (>60); Globulin 3.0 g/dL (1.7-4.1); Glucose 107 mg/dL (70-99); HEMOLYSIS 18 (0-50); Potassium 4.0 mmol/L (3.4-5.1); Sodium 130 mmol/L (137-145); Total Protein 6.8 g/dL (6.3-8.2)
== END ==
PROVIDERS: PCP Internal Medicine; Referring Provider Internal Medicine Infectious Disease; Visit Provider Internal Medicine Infectious Disease
DX: R19.7 Diarrhea, unspecified (principal); T84.50XD Infection and inflammatory reaction due to unspecified internal joint prosthesis, subsequent encounter
CPT/HCPCS: 36415; 80053; 85025

== ENCOUNTER → 2025-08-03 12:43 | Outpatient (CLI) | payer MEDICARE, OTHER, SELFPAY | PROVIDERS: PCP Internal Medicine; Referring Provider Internal Medicine Infectious Disease; Visit Provider Internal Medicine Infectious Disease | DX: R19.7 Diarrhea, unspecified (principal) | CPT/HCPCS: 87493 ==